=== PATIENT | female | born 1965 | race Caucasian/White ===

== ENCOUNTER 2022-07-18 08:34 | Observation (INO) | payer OTHER ==
[2022-07-18 08:44] LABS: Glucose,Whole Blood 174 mg/dL (70-110)
[2022-07-18 10:14] LABS: Basophils % (A) 0 %; Eosinophils # (A) 0.2 k/uL (0-0.7); Eosinophils % (A) 2 %; HCT 41.5 % (34.0-46.0); HGB 14.2 gm/dL (11.4-16.0); Lymphocytes # (A) 1.2 k/uL (1.0-4.8); Lymphocytes % (A) 14 %; MCHC 34.3 g/dL (31.0-37.0); MCV 87.5 fL (80.0-100.0); Mean Platelet Volume 9.5; Monocytes # (A) 0.2 k/uL (0-1.0); Monocytes % (A) 3 %; Neutrophils # (A) 6.5 k/uL (1.3-7.7); Neutrophils % (A) 79 %; Platelet Count 213 k/uL (150-450); RBC 4.74 m/uL (3.80-5.40); RDW 13.4 % (11.5-15.5); WBC 8.2 k/uL (3.8-10.6)
--- NOTE | 2022-07-18 10:14 | XR ---
EXAMINATION TYPE: XR chest 2V DATE OF EXAM: 07/18/2022 10:05 AM COMPARISON: None TECHNIQUE: XR chest 2V Frontal and lateral views of the chest. CLINICAL INDICATION:Female, 56 years old with history of altered mental status; FINDINGS: Lungs/Pleura: There is no evidence of pleural effusion, focal consolidation, or pneumothorax. Pulmonary vascularity: Unremarkable. Heart/mediastinum: Cardiomediastinal silhouette is unremarkable. Musculoskeletal: No acute osseous pathology. IMPRESSION: No acute cardiopulmonary disease/process.
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
[2022-07-18 10:21] LABS: ALT 28 U/L (4-34); AST 25 U/L (14-36); Acetaminophen <10.0 ug/mL; African American GFR (CKD) >90 (>60 ml/min/1.73 sqM); Albumin 4.7 g/dL (3.5-5.0); Alcohol <10 mg/dL; Alkaline Phosphatase 92 U/L (38-126); Anion Gap 13 mmol/L; Blood Urea Nitrogen 20 mg/dL (7-17); Calcium 9.3 mg/dL (8.4-10.2); Carbon Dioxide 21 mmol/L (22-30); Chloride 106 mmol/L (98-107); Glucose 184 mg/dL (74-99); Non-African American GFR(CKD) 82 (>60 ml/min/1.73 sqM); Salicylate <1.0 mg/dL; Sodium 140 mmol/L (137-145); Total Bilirubin 0.8 mg/dL (0.2-1.3); Total Protein 7.4 g/dL (6.3-8.2)
[2022-07-18] MEDS ORDERED: ONDANSETRON 4 MG/2 ML VIAL IVP STA (10:25)
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
[2022-07-18 11:33] LABS: INR 0.9 (<1.2); Prothrombin Time 10.3 sec (9.0-12.0)
[2022-07-18] MEDS ORDERED: NALOXONE 0.4 MG/ML 1 ML VIAL IV PRN (11:33)
[2022-07-18 11:37] LABS: Partial Thromboplastin Time 18.1 sec (22.0-30.0)
--- NOTE | 2022-07-18 13:39 | CT ---
EXAMINATION TYPE: CT angio head neck CT DLP: 886 mGycm, Automated exposure control for dose reduction was used. DATE OF EXAM: 07/18/2022 1:20 PM COMPARISON: CT brain C-spine 07/18/2022. CLINICAL INDICATION:Female, 56 years old with history of AMS; PHH, TECHNIQUE: Axially acquired helical CT angiogram of the head and neck was obtained with contrast util izing 65 cc of Isovue-370 administered intravenously. Axial images are supplemented with 3D reconstru ctions which were post-processed at an independent workstation. NASCET criteria used. FINDINGS: CTA HEAD: No evidence of acute intracranial hemorrhage, mass effect, or midline shift. The ventricles, sulci, a nd cisterns are unremarkable. The visualized portions of the internal carotid arteries, middle cerebral arteries, anterior cerebral arteries, and posterior cerebral arteries are patent. The basilar and vertebral arteries are patent. CTA NECK: Right Carotid System: The common carotid artery and external carotid artery are patent. The carotid bifurcation demonstrate s no evidence of hemodynamically significant stenosis. The remaining portions of the internal carotid artery demonstrate normal size without significant narrowing. Left Carotid System: The common carotid artery and external carotid artery are patent. The carotid bifurcation demonstrate s no evidence of hemodynamically significant stenosis. The remaining portions of the internal carotid artery demonstrate normal size without significant narrowing. Vertebral arteries are patent without evidence hemodynamically significant stenosis. Left vertebral a rtery is dominant. There is a bovine aortic arch. The origins of the great vessels are patent. No evidence of hemodynami mauri significant stenosis. IMPRESSION: 1. No evidence of dissection of the cervical internal carotid arteries or vertebral arteries or any e vidence of significant stenosis at the carotid bifurcations. 2. No evidence of high-grade stenosis or intracranial aneurysm.
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
[2022-07-18] MEDS ORDERED: ALPRAZolam 0.5 MG TAB PO PRN (14:18)
[2022-07-18] MEDS ORDERED: FAMOTIDINE 20 MG TAB PO PRN (14:18)
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
[2022-07-18] MEDS ORDERED: VENLAFAXINE HCL ER 75 MG CAP PO ONE (15:00)
--- NOTE | 2022-07-18 16:09 | MR ---
EXAMINATION TYPE: MR brain wo con DATE OF EXAM: 07/18/2022 3:54 PM COMPARISON: CT brain C-spine 07/18/2022, CTA head 07/18/2022. CLINICAL INDICATION:Female, 56 years old with history of AMS; TECHNIQUE: Multi planar, multi sequence imaging was performed through the brain without administratio n of contrast. FINDINGS: The tyler-white junctions, ventricular system, and cisterns appear unremarkable. Midline structures sh ow no abnormality. Diffusion-weighted imaging shows no evidence of restricted diffusion. The suscepti bility weighted images do not reveal any evidence for micro-hemorrhage. The bone marrow signal is within normal limits. The globes are unremarkable. Mild mucosal thickening of the right sphenoid sinus. IMPRESSION: No evidence of intracranial mass or acute/subacute infarct.
[2022-07-18] MEDS: ENOXAPARIN 40 MG/0.4 ML SYRINGE SQ SCH (17:09)
--- NOTE | 2022-07-18 18:27 | CA ---
Transthoracic Echo Report Name: Sofia Guevara Age: 56 Gender: F : 1965 Exam Date: 07/18/2022 13:14 Exam Location: [facility] Ht (in): 62 Wt (lb): 193 Ordering Physician: Addy Garcia MD Attending/Referring Phys: Dehydration Plant Operator Marlen Mitchell RDCS Procedure CPT: Indications: Thrombus Cardiac Hx: Technical Quality: Fair Contrast 1: N/A Total Dose (mL): Contrast 2: Total Dose (mL): MEASUREMENTS (Male / Female) Normal Values 2D ECHO LV Diastolic Diameter PLAX 3.5 cm 4.2 - 5.9 / 3.9 - 5.3 cm LV Systolic Diameter PLAX 3.1 cm IVS Diastolic Thickness 1.2 cm 0.6 - 1.0 / 0.6 - 0.9 cm LVPW Diastolic Thickness 1.7 cm 0.6 - 1.0 / 0.6 - 0.9 cm LV Relative Wall Thickness 0.8 LA Systolic Diameter LX 3.0 cm 3.0 - 4.0 / 2.7 - 3.8 cm LA Volume 37.8 cm??? 18 - 58 / 22 - 52 cm??? M-MODE Aortic Root Diameter MM 3.4 cm LA Systolic Diameter MM 3.7 cm LA Ao Ratio MM 1.1 MV E Point Septal Separation 0.2 cm AV Cusp Separation MM 2.2 cm DOPPLER MV Area PHT 2.7 cm??? Mitral E Point Velocity 54.6 cm/s Mitral A Point Velocity 76.1 cm/s Mitral E to A Ratio 0.7 MV Deceleration Time 281.9 ms MV E' Velocity 6.1 cm/s Mitral E to MV E' Ratio 9.0 FINDINGS Left Ventricle Left ventricular ejection fraction is estimated at 55-60 %. Mildly increased left ventricular wall thickness.left ventricular cavity size normal. Right Ventricle Normal right ventricular size and function. Right Atrium Normal right atrial size. Left Atrium Normal left atrial size. Mitral Valve Structurally normal mitral valve. Mild mitral regurgitation. Aortic Valve Trileaflet aortic valve. Tricuspid Valve Structurally normal tricuspid valve. Mild tricuspid regurgitation. Pulmonic Valve Pulmonic valve not well visualized. Pericardium No pericardial effusion. Aorta Normal size aortic root and proximal ascending aorta. CONCLUSIONS 1. Normal left ventricle size and systolic function 2. Mild mitral and tricuspid regurgitation Previewed by: Dr. Katty Young MD (Electronically Signed) Final Date: 18 July 2022 18:27
[2022-07-18] MEDS: ACETAMINOPHEN TAB 325 MG TAB PO PRN (21:46)
[2022-07-18] MEDS: cloNIDine HCL 0.2 MG TAB PO SCH (21:46)
--- NOTE | 2022-07-19 00:02 | EEG ---
ELECTROENCEPHALOGRAM REPORT CLINICAL HISTORY: This is a 56-year-old woman with episode of confusion. The video EEG is obtained to evaluate for seizure epileptiform activity. RELEVANT MEDICATION: The patient is not on any antiepileptic drugs. EEG TYPE: A routine 21-channel EEG is performed with video using the 10/20 electrode placement system. DESCRIPTION: Wakefulness is only obtained. During awake state, the posterior-dominant rhythm consists of mxd-do-cybycxmc voltage of 8.5 to 9.5 hertz activity. There is no physiological stage 2 sleep architecture. There is no focal slowing. Interictal and ictal is none. ACTIVATION PROCEDURE: Photic stimulation did not evoke a posterior driving response. There is no abnormality during the photic stimulation. Hyperventilation is not performed. CLINICAL INTERPRETATION: This is a normal routine EEG. There is no focal slowing, epileptiform discharge, or seizure on the EEG. Normal routine EEG, does not rule out underlying epilepsy. Clinical correlation is recommended. MMTOMASZ / FAYE: [id number] / MTDD
[2022-07-19] MEDS ORDERED: LEVOTHYROXINE 75 MCG TAB PO SCH (06:30)
[2022-07-19] MEDS: ENOXAPARIN 40 MG/0.4 ML SYRINGE SQ SCH (08:44)
[2022-07-19] MEDS: cloNIDine HCL 0.2 MG TAB PO SCH (08:44)
[2022-07-19] MEDS: ACETAMINOPHEN TAB 325 MG TAB PO PRN (08:49)
[2022-07-19] MEDS ORDERED: ATORVASTATIN 40 MG TAB PO SCH (09:00)
[2022-07-19] MEDS ORDERED: VENLAFAXINE HCL ER 150 MG CAP PO SCH (09:00)
[2022-07-19] MEDS ORDERED: MULTIVITAMINS, THERA 1 EACH TAB PO SCH (09:00)
[2022-07-19] MEDS ORDERED: CYANOCOBALAMIN 500 MCG TAB PO SCH (09:00)
[2022-07-19] MEDS ORDERED: CHOLECALCIFEROL 25 MCG (1000 IU) TABLET PO SCH (09:00)
[2022-07-19] MEDS ORDERED: ASPIRIN 325 MG TAB PO SCH (09:00)
[2022-07-19 09:16] LABS: Basophils % (A) 0 %; Eosinophils # (A) 0.1 k/uL (0-0.7); Eosinophils % (A) 1 %; HCT 41.6 % (34.0-46.0); HGB 13.9 gm/dL (11.4-16.0); Lymphocytes # (A) 1.3 k/uL (1.0-4.8); Lymphocytes % (A) 14 %; MCH 29.2 pg (25.0-35.0); MCHC 33.3 g/dL (31.0-37.0); MCV 87.7 fL (80.0-100.0); Mean Platelet Volume 8.5; Monocytes # (A) 0.5 k/uL (0-1.0); Monocytes % (A) 5 %; Neutrophils # (A) 6.8 k/uL (1.3-7.7); Neutrophils % (A) 78 %; Platelet Count 238 k/uL (150-450); RBC 4.74 m/uL (3.80-5.40); WBC 8.8 k/uL (3.8-10.6)
[2022-07-19 09:31] LABS: African American GFR (CKD) 90 (>60 ml/min/1.73 sqM); Anion Gap 11 mmol/L; Blood Urea Nitrogen 18 mg/dL (7-17); Calcium 9.7 mg/dL (8.4-10.2); Carbon Dioxide 26 mmol/L (22-30); Chloride 106 mmol/L (98-107); Glucose 112 mg/dL (74-99); Non-African American GFR(CKD) 78 (>60 ml/min/1.73 sqM); Potassium 4.2 mmol/L (3.5-5.1); Sodium 143 mmol/L (137-145)
--- NOTE | 2022-07-19 10:10 | P.DS ---
Providers Date of admission: 07/18/22 11:37 Attending physician: Addy Garcia MD Consults: 07/18/22 11:33 Consult Physician Urgent Consulting Provider: Ramses Nieto Consult Reason/Comments: acute global amnesia Do you want consulting provider notified?: Yes Primary care physician: Doris Beach Hospital Course: Discharge Diagnosis: Transient global amnesia Hypothyroidism Hypertension Anxiety and depression Hospital Course: Patient is a 56-year-old female with past medical history of hypothyroidism, hypertension, anxiety and depression who was brought in by EMS because she was found in her car in the ditch. Patient states that the last thing she remembers was leaving the house. She does not remember driving in her car or falling in the ditch or the ambulance ride. Patient denies any recent chest pain or presyncopal episodes. She states that she has been in good health prior to this. In the ED patient's workup was negative. She was admitted to the hospitalist service for further evaluation. Patient had stroke workup done that was negative. Her CT head was negative for acute process. Her CTA head and neck was negative for significant stenosis. Her echocardiogram was unremarkable. Her MRI was negative for acute stroke. Patient will be discharged on aspirin and statin. The most likely etiology of her transient confusion is transient global amnesia. Patient also had an EEG that was unremarkable. Patient instructed that she cannot drive for at least 6 months and after she is cleared by her PCP. Patient seen and examined at bedside.[] Vital signs reviewed and stable. General: [non toxic], [no distress], [appears at stated age] Derm: [warm], [dry] Head: [atraumatic], [normocephalic], [symmetric] Eyes: [EOMI], [no lid lag], [anicteric sclera] Mouth: [no lip lesion], [mucus membranes moist] Cardiovascular: [S1S2 reg], [no murmur], [positive posterior tibial pulse bilateral], Lungs: [CTA bilateral], [no rhonchi, no rales] , [no accessory muscle use] Abdominal: [soft], [ nontender to palpation], [no guarding], [no appreciable organomegaly] Ext: [no gross muscle atrophy], [no edema], [no contractures] Neuro: [ CN II-XI grossly intact], [no focal neuro deficits] Psych: [Alert], [oriented], [appropriate affect] A total of [33] minutes of time were spent preparing this complex discharge summary . Patient Condition at Discharge: Stable Plan - Discharge Summary Discharge Rx Participant: Yes New Discharge Prescriptions: New Aspirin 81 mg PO DAILY #30 tab Atorvastatin [Lipitor] 40 mg PO DAILY #30 tab Continue Diclofenac Sodium [Voltaren] 75 mg PO BID Cholecalciferol [Vitamin D3 (25 Mcg = 1000 Iu)] 100 mcg PO DAILY ALPRAZolam [Xanax] 0.5 mg PO BID PRN PRN Reason: Anxiety Levothyroxine Sodium [Synthroid] 75 mcg PO DAILY Multivitamins, Thera [Multivitamin (formulary)] 1 tab PO DAILY Famotidine [Pepcid] 20 mg PO BID PRN PRN Reason: gerd Cyanocobalamin (Vitamin B-12) [Vitamin B-12] 1,000 mcg PO DAILY cloNIDine HCL 0.2 mg PO BID Venlafaxine HCl ER [Effexor XR] 150 mg PO Q2D Venlafaxine HCl ER [Effexor XR] 75 mg PO Q2D Discharge Medication List ALPRAZolam [Xanax] 0.5 mg PO BID PRN 07/18/22 [History] Cholecalciferol [Vitamin D3 (25 Mcg = 1000 Iu)] 100 mcg PO DAILY 07/18/22 [History] Cyanocobalamin (Vitamin B-12) [Vitamin B-12] 1,000 mcg PO DAILY 07/18/22 [History] Diclofenac Sodium [Voltaren] 75 mg PO BID 07/18/22 [History] Famotidine [Pepcid] 20 mg PO BID PRN 07/18/22 [History] Levothyroxine Sodium [Synthroid] 75 mcg PO DAILY 07/18/22 [History] Multivitamins, Thera [Multivitamin (formulary)] 1 tab PO DAILY 07/18/22 [History] Venlafaxine HCl ER [Effexor XR] 75 mg PO Q2D 07/18/22 [History] Venlafaxine HCl ER [Effexor XR] 150 mg PO Q2D 07/18/22 [History] cloNIDine HCL 0.2 mg PO BID 07/18/22 [History] Aspirin 81 mg PO DAILY #30 tab 07/19/22 [Rx] Atorvastatin [Lipitor] 40 mg PO DAILY #30 tab 07/19/22 [Rx] Follow up Appointment(s)/Referral(s): Doris Beach MD [Primary Care Provider] - 1-2 days Discharge Disposition: HOME SELF-CARE
[2022-07-19 10:25] VITALS: BP 141/80; PULSE 85; RESP 16; TEMP 98.5
[2022-07-19 10:30] LABS: T4, Free (Free Thyroxine) 1.18 ng/dL (0.78-2.19)
--- NOTE | 2022-07-19 12:25 | P.PN ---
Subjective Progress Note Date: 07/19/22 The patient is seen at bedside and she feels she is doing better. She continues not to remember the incident of what transpired that led her to hospital. She denies of any headaches, any focal weakness or numbness. Objective - Vital Signs Vital signs: Vital Signs Temp 98.5 F 07/19/22 08:43 Pulse 85 07/19/22 08:43 Resp 16 07/19/22 08:43 BP 141/80 07/19/22 08:43 Pulse Ox 98 07/19/22 08:43 FiO2 Intake & Output 07/18/22 07/19/22 07/19/22 18:59 06:59 18:59 Intake Total 423 Output Total 0 Balance 0 423 Weight 86.183 kg Intake: IV 5 Invasive Line 1 5 Oral 418 Output: Urine 0 Other: Voiding Method Toilet Toilet # Voids 2 - Exam GENERAL: The patient is lying in bed and is not in acute distress. NEUROLOGICAL: Higher mental function: The patient is awake, alert, oriented to self, place and time. Patient is following simple commands. No aphasia and no neglect. Cranial nerves: The pupils are round, equal and reactive to light and accommodation. Visual aragon are full to confrontation throughout. Extraocular movement is intact no nystagmus is noted. Facial sensation is normal to touch throughout. The facial strength is normal throughout. Hearing is normal bilaterally to hand rub. Tongue is midline and moved [id number]-mx-[id number] without any difficulty. No dysarthria is noted. Shoulder shrug is normal bilaterally. Motor: The strength is 5 over 5 throughout. Normal tone and bulk. Cerebellum: Normal finger to nose heel to leigh bilaterally. Sensation: Sensation is normal to touch throughout. Reflexes (right/left): 2+ throughout. Plantars are downgoing bilaterally. Some of the workup during this hospital visit consisted of: CBC with differential is unremarkable AST ALT and ammonia level is within normal limits. Sodium is within normal limits. TSH is 25.80 while free T4 is 1.18. CT of the head is reported as no acute intracranial processes. Air fluid level within the last seen her sinus. Correlate for acute sinusitis. CT cervical spine is reported as no evidence for cervical spine fracture. EKG is reported as sinus rhythm. Normal EKG. Serum alcohol <10. MR the brain is reported as no evidence of intracranial mass or acute/subacute infarct. CT angiography of the head and neck was reported as no evidence of dissection of the cervical internal carotid arteries or vertebral arteries or any evidence of significant stenosis at the carotid bifurcation. No evidence of high-grade stenosis or intracranial aneurysm.. 2-D echo was reported as normal left ventricular size and systolic function. Mild mitral and tricuspid regurgitation. Routine EEG is normal. There is no focal slowing, epileptiform discharges or seizure on the EEG. Normal EEG does not rule out underlying epilepsy. - Labs CBC & Chem 7: 07/19/22 08:47 07/19/22 08:47 Labs: Abnormal Lab Results - Last 24 Hours (Table) 07/19/22 Range/Units 08:47 BUN 18 H (7-17) mg/dL Glucose 112 H (74-99) mg/dL TSH 25.800 H (0.465-4.680) mIU/L Assessment and Plan Assessment: Transient global Amnesia (does not recall today's incident and was found in ditch and it seem the last two days does not recall conversation with daughter- in law): Unknown cause Hypothyroidism Hypercholesteremia History of basal cell carcinoma History of hysterectomy Marijuana use Plan: Patient was started on aspirin 325 daily as well as Lipitor 40 mg daily by the primary team and that sufficient for secondary stroke prophylaxis Pending vitamin B12 and folate level. For her abnormal thyroid function will defer the management to primary team PT, OT and [employer] are consulted Continue neuro checks On cardiac monitoring I notified the patient that I would recommend restrictions on driving, avoiding heights, swimming unassisted or using heavy machinery until she is reevaluated by neurologist as an outpatient for her own safety and the safety of others to make sure she does not have any further episodes like this in the future. It's uncertain if she lost consciousness or not or had a syncopal episode. I discussed this with the patient as well as the primary team. Patient needs to follow-up with a neurologist as outpatient within 1-2 weeks. Freida discussed with the patient and the patient's primary team. Otherwise no additional workup. Time with Patient: Less than 30
[2022-07-19 18:50] LABS: Chol/HDL Ratio 4.71 Ratio; LDL Cholesterol,Calculated 167.3 mg/dL (0.0-131.0)
[2022-07-20] MEDS ORDERED: VENLAFAXINE HCL ER 75 MG CAP PO SCH (09:00)
== END 2022-07-19 14:37 | disposition home or self-care (01) ==
LOC: EC 08:34 → 3SCARD 11:37
PROVIDERS: ADMIT Internal Medicine; ATTEND Internal Medicine
DX: G45.4 Transient global amnesia (principal); S10.91XA Abrasion of unspecified part of neck, initial encounter; E03.9 Hypothyroidism, unspecified; E78.00 Pure hypercholesterolemia, unspecified; I10 Essential (primary) hypertension; F41.9 Anxiety disorder, unspecified; F32.A Depression, unspecified; I08.1 Rheumatic disorders of both mitral and tricuspid valves; F12.90 Cannabis use, unspecified, uncomplicated; Z79.890 Hormone replacement therapy; Z79.899 Other long term (current) drug therapy; Z79.82 Long term (current) use of aspirin; Z87.891 Personal history of nicotine dependence; Z85.828 Personal history of other malignant neoplasm of skin; Z90.710 Acquired absence of both cervix and uterus; V48.5XXA Car driver injured in noncollision transport accident in traffic accident, initial encounter; Y92.488 Other paved roadways as the place of occurrence of the external cause
CPT/HCPCS: 96372 ×2; 96374; 99285; 36415; 95816; 93005; 93306; 97165; 84439; 80061; 80053; 80048; 84443; 82607; 82140; 82746; 84484; 85025 ×2; 85610; 85730; 80143; 80320; 80179; 71046; 72125; 70496; 70450; 70498; 70551; G0378 ×2; J2405; J1650 ×2; Q9967

== ENCOUNTER 2022-07-24 08:38 | Emergency (ER) | payer OTHER ==
[2022-07-24 08:46] VITALS: TEMP 98
[2022-07-24] MEDS ORDERED: KETOROLAC 15 MG/ML 1 ML VIAL IVP STA (08:58)
[2022-07-24] MEDS ORDERED: SODIUM CHLORIDE 0.9% 500 ML 500 ML IV STA (08:58)
[2022-07-24] MEDS ORDERED: METOCLOPRAMIDE 5 MG/ML 2 ML VIAL IVP STA (08:58)
--- NOTE | 2022-07-24 09:00 | ED ---
General Adult HPI - General Chief complaint: Abdominal Pain Stated complaint: Abdominal Time Seen by Provider: 07/24/22 08:53 Source: patient, RN notes reviewed Mode of arrival: ambulatory Limitations: no limitations - History of Present Illness Initial comments: Patient is a pleasant 56-year-old female presenting to the emergency department with concern with abdominal pain. Onset of symptoms was around 5 AM, woke her from sleep. Patient does have associated nausea and vomiting. Discomfort is right flank. Discomfort is waxing and waning. Patient has a hard time getting comfortable. No history of similar symptoms previously. - Related Data Home Medications Medication Instructions Recorded Confirmed ALPRAZolam [Xanax] 0.5 mg PO BID PRN 07/18/22 07/24/22 Cholecalciferol [Vitamin D3 (25 100 mcg PO DAILY 07/18/22 07/24/22 Mcg = 1000 Iu)] Cyanocobalamin (Vitamin B-12) 1,000 mcg PO DAILY 07/18/22 07/24/22 [Vitamin B-12] Diclofenac Sodium [Voltaren] 75 mg PO BID 07/18/22 07/24/22 Famotidine [Pepcid] 20 mg PO BID PRN 07/18/22 07/24/22 Levothyroxine Sodium [Synthroid] 75 mcg PO DAILY 07/18/22 07/24/22 Multivitamins, Thera [Multivitamin 1 tab PO DAILY 07/18/22 07/24/22 (formulary)] Venlafaxine HCl ER [Effexor XR] 75 mg PO Q2D 07/18/22 07/24/22 Venlafaxine HCl ER [Effexor XR] 150 mg PO Q2D 07/18/22 07/24/22 cloNIDine HCL 0.2 mg PO BID 07/18/22 07/24/22 Previous Rx's Medication Instructions Recorded Aspirin 81 mg PO DAILY #30 tab 07/19/22 Atorvastatin [Lipitor] 40 mg PO DAILY #30 tab 07/19/22 Ketorolac [Toradol] 10 mg PO Q6HR PRN #15 tab 07/24/22 Metoclopramide HCl [Reglan] 10 mg PO Q6HR PRN #15 tablet 07/24/22 Allergies Allergy/AdvReac Type Severity Reaction Status Date / Time No Known Allergies Allergy Verified 07/24/22 10:47 Review of Systems ROS Statement: Those systems with pertinent positive or pertinent negative responses have been documented in the HPI. ROS Other: All systems not noted in ROS Statement are negative. Constitutional: Denies: fever Eyes: Denies: eye pain ENT: Denies: ear pain Respiratory: Denies: cough Cardiovascular: Denies: chest pain Endocrine: Denies: as per HPI Gastrointestinal: Reports: as per HPI, abdominal pain, nausea, vomiting Genitourinary: Denies: dysuria Musculoskeletal: Denies: back pain Skin: Denies: rash Neurological: Denies: weakness Past Medical History Past Medical History: No Reported History History of Any Multi-Drug Resistant Organisms: None Reported Past Surgical History: Section, Hysterectomy Past Psychological History: No Psychological Hx Reported Smoking Status: Former smoker Past Alcohol Use History: Occasional Past Drug Use History: Marijuana General Exam Limitations: no limitations General appearance: alert, other (Appears uncomfortable) Head exam: Present: normocephalic Eye exam: Present: normal appearance Neck exam: Present: normal inspection Respiratory exam: Present: normal lung sounds bilaterally Cardiovascular Exam: Present: regular rate, normal rhythm Expanded Peripheral pulses: 2+: Dorsalis Pedis (R), Dorsalis Pedis (L) GI/Abdominal exam: Present: soft, tenderness (Minimal right flank). Absent: distended, guarding, rebound, rigid, pulsatile mass Extremities exam: Present: normal inspection Back exam: Present: normal inspection. Absent: tenderness, CVA tenderness (R) Neurological exam: Present: alert Psychiatric exam: Present: normal affect, normal mood Skin exam: Present: normal color Course Vital Signs 07/24/22 07/24/22 08:41 10:25 Temperature 98 F Pulse Rate 92 90 Respiratory 18 18 Rate Blood Pressure 176/119 183/95 O2 Sat by Pulse 100 100 Oximetry Medical Decision Making - Medical Decision Making Patient reevaluated and significantly improved. Patient again reevaluated and still symptom-free. Patient updated on results and need for follow-up. Blood pressure improved - Lab Data Result diagrams: 07/24/22 09:03 07/24/22 09:03 Lab Results 07/24/22 07/24/22 07/24/22 Range/Units 09:03 09:03 09:03 WBC 13.4 H (3.8-10.6) k/uL RBC 5.01 (3.80-5.40) m/uL Hgb 15.1 (11.4-16.0) gm/dL Hct 43.7 (34.0-46.0) % MCV 87.2 (80.0-100.0) fL MCH 30.2 (25.0-35.0) pg MCHC 34.7 (31.0-37.0) g/dL RDW 13.1 (11.5-15.5) % Plt Count 299 (150-450) k/uL MPV 9.0 Neutrophils % 85 % Lymphocytes % 11 % Monocytes % 2 % Eosinophils % 2 % Basophils % 0 % Neutrophils # 11.4 H (1.3-7.7) k/uL Lymphocytes # 1.4 (1.0-4.8) k/uL Monocytes # 0.3 (0-1.0) k/uL Eosinophils # 0.3 (0-0.7) k/uL Basophils # 0.0 (0-0.2) k/uL PT 10.3 (9.0-12.0) sec INR 0.9 (<1.2) APTT 20.2 L (22.0-30.0) sec Sodium (137-145) mmol/L Potassium (3.5-5.1) mmol/L Chloride (98-107) mmol/L Carbon Dioxide (22-30) mmol/L Anion Gap mmol/L BUN (7-17) mg/dL Creatinine (0.52-1.04) mg/dL Est GFR (CKD-EPI)AfAm (>60 ml/min/1.73 sqM) Est GFR (CKD-EPI)NonAf (>60 ml/min/1.73 sqM) Glucose (74-99) mg/dL Calcium (8.4-10.2) mg/dL Total Bilirubin (0.2-1.3) mg/dL AST (14-36) U/L ALT (4-34) U/L Alkaline Phosphatase (38-126) U/L Total Protein (6.3-8.2) g/dL Albumin (3.5-5.0) g/dL Amylase (30-110) U/L Lipase (23-300) U/L Urine Color Yellow Urine Appearance Clear (Clear) Urine pH 7.0 (5.0-8.0) Ur Specific [place] 1.033 (1.001-1.035) Urine Protein 1+ H (Negative) Urine Glucose (UA) Trace H (Negative) Urine Ketones 1+ H (Negative) Urine Blood Small H (Negative) Urine Nitrite Negative (Negative) Urine Bilirubin Negative (Negative) Urine Urobilinogen 2.0 (<2.0) mg/dL Ur Leukocyte Esterase Trace H (Negative) Urine RBC 82 H (0-5) /hpf Urine WBC 4 (0-5) /hpf Ur Squamous Epith Cells 1 (0-4) /hpf Calcium Oxalate Crystal Few H (None) /hpf Urine Bacteria Rare H (None) /hpf Urine Mucus Moderate H (None) /hpf 07/24/22 Range/Units 09:03 WBC (3.8-10.6) k/uL RBC (3.80-5.40) m/uL Hgb (11.4-16.0) gm/dL Hct (34.0-46.0) % MCV (80.0-100.0) fL MCH (25.0-35.0) pg MCHC (31.0-37.0) g/dL RDW (11.5-15.5) % Plt Count (150-450) k/uL MPV Neutrophils % % Lymphocytes % % Monocytes % % Eosinophils % % Basophils % % Neutrophils # (1.3-7.7) k/uL Lymphocytes # (1.0-4.8) k/uL Monocytes # (0-1.0) k/uL Eosinophils # (0-0.7) k/uL Basophils # (0-0.2) k/uL PT (9.0-12.0) sec INR (<1.2) APTT (22.0-30.0) sec Sodium 143 (137-145) mmol/L Potassium 4.0 (3.5-5.1) mmol/L Chloride 111 H (98-107) mmol/L Carbon Dioxide 17 L (22-30) mmol/L Anion Gap 15 mmol/L BUN 20 H (7-17) mg/dL Creatinine 0.87 (0.52-1.04) mg/dL Est GFR (CKD-EPI)AfAm 86 (>60 ml/min/1.73 sqM) Est GFR (CKD-EPI)NonAf 75 (>60 ml/min/1.73 sqM) Glucose 170 H (74-99) mg/dL Calcium 9.9 (8.4-10.2) mg/dL Total Bilirubin 1.0 (0.2-1.3) mg/dL AST 35 (14-36) U/L ALT 32 (4-34) U/L Alkaline Phosphatase 127 H (38-126) U/L Total Protein 7.8 (6.3-8.2) g/dL Albumin 4.9 (3.5-5.0) g/dL Amylase 90 (30-110) U/L Lipase 75 (23-300) U/L Urine Color Urine Appearance (Clear) Urine pH (5.0-8.0) Ur Specific [place] (1.001-1.035) Urine Protein (Negative) Urine Glucose (UA) (Negative) Urine Ketones (Negative) Urine Blood (Negative) Urine Nitrite (Negative) Urine Bilirubin (Negative) Urine Urobilinogen (<2.0) mg/dL Ur Leukocyte Esterase (Negative) Urine RBC (0-5) /hpf Urine WBC (0-5) /hpf Ur Squamous Epith Cells (0-4) /hpf Calcium Oxalate Crystal (None) /hpf Urine Bacteria (None) /hpf Urine Mucus (None) /hpf - Radiology Data Radiology results: report reviewed (Computed tomography scan abdomen pelvis shows mild right hydronephrosis without evidence of obstructive calculi, could represent a recently passed stone.), image reviewed (KUB also interpreted by myself reveals nonspecific abdomen) Disposition Clinical Impression: Renal colic Disposition: HOME SELF-CARE Condition: Stable Instructions (If sedation given, give patient instructions): Kidney Stones (ED) Additional Instructions: Prescription sent to pharmacy. Please do follow-up with primary care physician in the next couple days for recheck. Return for increased pain, vomiting, fevers, worsening or changing symptoms or other concerns. Prescriptions: Metoclopramide HCl [Reglan] 10 mg PO Q6HR PRN #15 tablet PRN Reason: Nausea Ketorolac [Toradol] 10 mg PO Q6HR PRN #15 tab PRN Reason: Pain Is patient prescribed a controlled substance at d/c from ED?: No Referrals: Doris Beach MD [Primary Care Provider] - 1-2 days Time of Disposition: 11:44
[2022-07-24 09:10] LABS: Basophils % (A) 0 %; Eosinophils # (A) 0.3 k/uL (0-0.7); Eosinophils % (A) 2 %; HCT 43.7 % (34.0-46.0); HGB 15.1 gm/dL (11.4-16.0); Lymphocytes # (A) 1.4 k/uL (1.0-4.8); Lymphocytes % (A) 11 %; MCH 30.2 pg (25.0-35.0); MCHC 34.7 g/dL (31.0-37.0); MCV 87.2 fL (80.0-100.0); Monocytes # (A) 0.3 k/uL (0-1.0); Monocytes % (A) 2 %; Neutrophils # (A) 11.4 k/uL (1.3-7.7); Neutrophils % (A) 85 %; Platelet Count 299 k/uL (150-450); RBC 5.01 m/uL (3.80-5.40); RDW 13.1 % (11.5-15.5); WBC 13.4 k/uL (3.8-10.6)
[2022-07-24 09:21] LABS: Albumin 4.9 g/dL (3.5-5.0); Calcium 9.9 mg/dL (8.4-10.2); Total Protein 7.8 g/dL (6.3-8.2)
--- NOTE | 2022-07-24 09:23 | XR ---
EXAMINATION TYPE: XR KUB DATE OF EXAM: 07/24/2022 COMPARISON: NONE HISTORY: Pain TECHNIQUE: Single supine KUB image of the abdomen is obtained FINDINGS: Small bowel demonstrates no evidence for dilatation or air fluid levels. Gas and fecal material is seen in non-distended colon. No convincing evidence for pneumoperitoneum. No unusual calcifications. The lung bases are clear. The osseous structures are intact. IMPRESSION: 1. Overall nonobstructive bowel gas pattern.
[2022-07-24 09:51] LABS: INR 0.9 (<1.2); Prothrombin Time 10.3 sec (9.0-12.0)
[2022-07-24 09:57] LABS: Partial Thromboplastin Time 20.2 sec (22.0-30.0)
--- NOTE | 2022-07-24 10:02 | CT ---
EXAMINATION TYPE: CT abdomen pelvis wo con CT DLP: 1152.60 mGycm, Automated exposure control for dose reduction was used. DATE OF EXAM: 07/24/2022 9:43 AM COMPARISON: None CLINICAL INDICATION:Female, 56 years old with history of abdominal pain; TECHNIQUE: Axial CT of the abdomen and pelvis. Sagittal and coronal reformats were created on a [employer] workstation. Contrast used: None Oral contrast used: without Oral Contrast FINDINGS: LOWER CHEST: Unremarkable ABDOMEN LIVER: Unremarkable GALLBLADDER AND BILE DUCTS: Unremarkable. PANCREAS: Unremarkable. SPLEEN: Unremarkable. ADRENAL GLANDS: Unremarkable. KIDNEYS AND URETERS: Mild asymmetric dilation of the renal collecting system No evidence of calculus within the renal collecting system a calculus near the distal ureters felt to be within a vein and ne ar the right mid ureter is within the gonadal vein. The left kidney is grossly unremarkable. PELVIS BLADDER: Unremarkable REPRODUCTIVE: Uterus is surgically absent. ABDOMEN & PELVIS STOMACH AND BOWEL: No evidence of bowel obstruction. Appendix is normal. PERITONEUM: No evidence of pneumoperitoneum or free fluid. VASCULATURE: No evidence of aortic aneurysm. MUSCULOSKELETAL: No acute osseous abnormalities LYMPH NODES: No gross evidence for lymphadenopathy. SOFT TISSUE/ABDOMINAL WALL: Unremarkable IMPRESSION: 1. Mild right hydronephrosis without evidence of obstructive calculus. This could represent recently passed stone.
[2022-07-24 11:35] LABS: Appearance,Urine Clear (Clear); Bacteria,Urine Rare /hpf; Bilirubin,Urine Negative (Negative); Blood,Urine Small (Negative); Calcium Oxalate Crystals,Urine Few /hpf; Color,Urine Yellow; Glucose,Urine (UA) Trace (Negative); Ketones,Urine 1+ (Negative); Leukocyte Esterase,Urine Trace (Negative); Mucus,Urine Moderate /hpf; Nitrite,Urine Negative (Negative); Protein,Urine 1+ (Negative); RBC,Urine 82 /hpf (0-5); Specific Gravity,Urine 1.033 (1.001-1.035); Squamous Epithelial Cell,Urine 1 /hpf (0-4); WBC,Urine 4 /hpf (0-5)
[2022-07-24 11:51] VITALS: BP 192/114; PULSE 79; RESP 16
== END 2022-07-24 11:51 | disposition home or self-care (01) ==
LOC: EC 08:38
DX: N13.30 Unspecified hydronephrosis (principal); Z87.891 Personal history of nicotine dependence; Z79.82 Long term (current) use of aspirin
CPT/HCPCS: 36415; 80053; 82150; 83690; 85025; 85610; 85730; 81001; 74018; 74176; 99284; 96374; 96375; 96361; J2765; J1885